=== PATIENT | male | born 1965 | race Caucasian/White ===

== ENCOUNTER 2020-08-21 22:34 | Emergency (ER) | payer OTHER ==
[~2020-08-21] VITALS: Ht 180.3 cm; Wt 127.0 kg
[2020-08-21 23:48] LABS: BASOPHILS % 0.8 % (0.0-2.0); EOSINOPHILS % 1.4 % (0.0-5.0); HEMATOCRIT. 40.8 % (42.0-52.0); HEMOGLOBIN. 13.6 g/dL (14.0-18.0); LYMPHOCYTES % 9.3 % (20.0-50.0); MEAN CORPUSCULAR HEMOGLOBIN 28.2 pg (28.0-32.0); MEAN CORPUSCULAR VOLUME 84.7 fL (80.0-94.0); MEAN PLATELET VOLUME 9.8 fl (7.4-10.4); MONOCYTES % 7.2 % (2.0-8.0); NEUTROPHILS % 81.3 % (40.0-76.0); PLATELET 226 x1000/uL (130-400); RED BLOOD CELL COUNT 4.82 mill/uL (4.7-6.1); RED CELL DISTRIBUTION WIDTH 14.7 % (11.6-14.6)
[2020-08-21 23:59] LABS: CHLORIDE 103 mEq/L (98-107)
[2020-08-22 03:04] VITALS: BP 138/90
[2020-08-23] MEDS ORDERED: TERA10CA4 PO (23:04)
[2020-08-23] MEDS ORDERED: SPIR25TA PO (23:04)
[2020-08-23] MEDS ORDERED: COR3 PO (23:04)
[2020-08-23] MEDS ORDERED: INSU100V3 SUBCUT (23:04)
[2020-08-23] MEDS ORDERED: METF-873 PO (23:04)
[2020-08-23] MEDS ORDERED: LISI-649 PO (23:04)
[2020-08-23] MEDS ORDERED: ZOLP5TAB2 PO (23:05)
== END 2020-08-22 03:06 | disposition home or self-care (01) ==
LOC: ER 22:34
DX: R07.89 Other chest pain (principal); R42 Dizziness and giddiness; E11.9 Type 2 diabetes mellitus without complications; E78.00 Pure hypercholesterolemia, unspecified; I10 Essential (primary) hypertension
CPT/HCPCS: 36415; 71045; 80053; 83880; 84484; 85025; 93005; 99285

== ENCOUNTER 2020-08-23 04:31 | Inpatient (IN) | payer OTHER ==
[~2020-08-23] VITALS: Ht 175.3 cm; Wt 125.6 kg
[2020-08-23 06:44] LABS: BASOPHILS % 0.8 % (0.0-2.0); EOSINOPHILS % 2.7 % (0.0-5.0); HEMATOCRIT. 40.4 % (42.0-52.0); HEMOGLOBIN. 13.7 g/dL (14.0-18.0); LYMPHOCYTES % 16.6 % (20.0-50.0); MEAN CORPUSCULAR HEMOGLOBIN 28.8 pg (28.0-32.0); MEAN CORPUSCULAR VOLUME 84.8 fL (80.0-94.0); MEAN PLATELET VOLUME 9.9 fl (7.4-10.4); MONOCYTES % 9.3 % (2.0-8.0); NEUTROPHILS % 70.6 % (40.0-76.0); PLATELET 219 x1000/uL (130-400); RED BLOOD CELL COUNT 4.77 mill/uL (4.7-6.1); RED CELL DISTRIBUTION WIDTH 14.7 % (11.6-14.6)
[2020-08-23 06:51] LABS: CHLORIDE 106 mEq/L (98-107)
[2020-08-23] MEDS ORDERED: ASPIRIN 325MG EC TABLET PO ONE (07:30)
[2020-08-23] MEDS: MORPHINE SULFATE 2 MG/ML CPJ (NOT FOR IM USE) IV PRN ×2 (08:44→23:56)
[2020-08-23] MEDS ORDERED: NITROGLYCERIN 0.4MG TABLET SL SL PRN (10:30)
[2020-08-23] MEDS ORDERED: CLONIDINE 0.1MG TABLET PO PRN (10:30)
[2020-08-23] MEDS ORDERED: DOCUSATE SODIUM 100MG CAPSULE PO PRN (10:30)
[2020-08-23] MEDS ORDERED: NA PHOS,M-B/NA PHOS,DI-BA ENEMA 118ML PR PRN (10:30)
[2020-08-23] MEDS ORDERED: ACETAMINOPHEN 325MG TABLET PO PRN (10:30)
[2020-08-23] MEDS ORDERED: GUAIFENESIN 200MG/10ML SUGAR FREE UDC PO PRN (10:30)
[2020-08-23] MEDS ORDERED: ACETAMINOPHEN 650MG SUPP PR PRN (10:30)
[2020-08-23] MEDS ORDERED: MAGNESIUM/ALUMINUM HYDROXIDE/SIMETHICONE 30ML UDC PO PRN (10:30)
[2020-08-23] MEDS ORDERED: DIPHENHYDRAMINE 50MG/ML VIAL IV PRN (10:30)
[2020-08-23] MEDS ORDERED: IPRATROPIUM/ALBUTEROL 0.5-3(2.5)MG/3ML NEB NEB PRN (10:30)
[2020-08-23] MEDS ORDERED: DEXTROSE 50% WATER 50ML SYRINGE IV PRN (10:30)
[2020-08-23] MEDS ORDERED: ONDANSETRON HCL 4MG/2ML INJ IV PRN (10:30)
[2020-08-23] MEDS ORDERED: ENOXAPARIN 30MG/0.3ML SYR SUBCUT SCH (11:13)
[2020-08-23] MEDS: BLOOD SUGAR DIAGNOSTIC STRIP TEST SCH ×3 (12:11→20:53)
[2020-08-23] MEDS: INSULIN LISPRO 100 UNITS/ML SUBCUT SCH ×3 (12:11→20:50)
[2020-08-23 12:25] LABS: D-DIMER 0.42 mg/L FEU (<0.50); PROTHROMBIN TIME 10.8 sec (9.6-11.0)
[2020-08-23] MEDS ORDERED: POTASSIUM CHLORIDE 20MEQ/PACKET PO NR (13:45)
[2020-08-23 15:10] LABS: CREATINE KINASE 79 IU/L (39-308)
[2020-08-23 15:11] LABS: CREATINE KINASE MB FRACTION 1.2 ng/mL (0.5-3.6)
[2020-08-23] MEDS: CARVEDILOL 12.5MG TABLET PO SCH (20:49)
[2020-08-23] MEDS: FAMOTIDINE 20MG TABLET PO SCH (20:50)
[2020-08-23 21:30] VITALS: BP 117/97
[2020-08-23] MEDS ORDERED: LISI-649 PO (23:04)
[2020-08-23] MEDS ORDERED: COR3 PO (23:04)
[2020-08-23] MEDS ORDERED: METF-873 PO (23:04)
[2020-08-23] MEDS ORDERED: INSU100V3 SUBCUT (23:04)
[2020-08-23] MEDS ORDERED: TERA10CA4 PO (23:04)
[2020-08-23] MEDS ORDERED: SPIR25TA PO (23:04)
[2020-08-23] MEDS ORDERED: ZOLP5TAB2 PO (23:05)
[2020-08-23] MEDS: DEXT 5%/0.45% NACL 1000ML 1,000 ML IV SCH (23:36)
[2020-08-24] VITALS (8 sets, daily range): BP systolic 113–138; BP diastolic 56–88
[2020-08-24] MEDS ORDERED: ENOXAPARIN 40MG/0.4ML SYR SUBCUT NR (00:05)
[2020-08-24 00:40] LABS: CREATINE KINASE 87 IU/L (39-308)
[2020-08-24 00:41] LABS: CREATINE KINASE MB FRACTION 1.3 ng/mL (0.5-3.6)
[2020-08-24 01:47] LABS: CLARITY URINE CLEAR (CLEAR); COLOR URINE YELLOW (YELLOW); KETONES URINE NEGATIVE (NEGATIVE); LEUKOCYTE ESTERASE URINE NEGATIVE (NEGATIVE); NITRITE URINE NEGATIVE (NEGATIVE); OCCULT BLOOD URINE NEGATIVE (NEGATIVE); PROTEIN URINE NEGATIVE (NEGATIVE); SPECIFIC GRAVITY URINE 1.016 (1.005-1.030); UROBILINOGEN URINE 0.2 E.U./dL (0.2-1.0)
[2020-08-24 01:57] LABS: *AMPHETAMINES SCREEN URINE NEGATIVE (NEGATIVE)
[2020-08-24 01:58] LABS: *BARBITURATES SCREEN URINE NEGATIVE (NEGATIVE); *BENZODIAZEPINES SCREEN URINE NEGATIVE (NEGATIVE); *COCAINE SCREEN URINE NEGATIVE (NEGATIVE); METHADONE URINE SCREEN NEGATIVE (NEGATIVE); OPIATES URINE SCREEN PRESUMTIVE POSITIVE (NEGATIVE); PHENCYCLIDINE URINE SCREEN NEGATIVE (NEGATIVE)
[2020-08-24 01:59] LABS: CANNABINOID URINE SCREEN PRESUMTIVE POSITIVE (NEGATIVE)
[2020-08-24] MEDS: INSULIN LISPRO 100 UNITS/ML SUBCUT SCH ×3 (05:47→17:15)
[2020-08-24] MEDS: BLOOD SUGAR DIAGNOSTIC STRIP TEST SCH ×3 (05:47→16:45)
[2020-08-24 06:30] LABS: BASOPHILS % 1.1 % (0.0-2.0); EOSINOPHILS % 3.1 % (0.0-5.0); HEMATOCRIT. 41.5 % (42.0-52.0); LYMPHOCYTES % 19.7 % (20.0-50.0); MEAN CORPUSCULAR VOLUME 86.1 fL (80.0-94.0); MEAN PLATELET VOLUME 10.5 fl (7.4-10.4); MONOCYTES % 10.4 % (2.0-8.0); NEUTROPHILS % 65.7 % (40.0-76.0); PLATELET 237 x1000/uL (130-400); RED BLOOD CELL COUNT 4.83 mill/uL (4.7-6.1); RED CELL DISTRIBUTION WIDTH 14.3 % (11.6-14.6)
[2020-08-24] MEDS ORDERED: SODIUM CHLORIDE 0.45% 1,000 ML IV SCH (06:30)
[2020-08-24 06:34] LABS: CHLORIDE 105 mEq/L (98-107)
[2020-08-24 06:41] LABS: LDL CHOLESTEROL 77 mg/dL (5-100)
[2020-08-24 06:42] LABS: HDL CHOLESTEROL 32 mg/dL (40-59)
[2020-08-24 06:47] LABS: TOTAL IRON BINDING CAPACITY 369 ug/dL (250-450)
[2020-08-24 06:50] LABS: T4 FREE 1.24 ng/dL (0.76-1.46)
[2020-08-24 07:06] LABS: VITAMIN B12 SERUM 554 pg/mL (211-911)
[2020-08-24] MEDS ORDERED: FENTANYL CITRATE/PF 50MCG/ML 2ML VIAL ONE ×2 (08:05→11:39)
[2020-08-24] MEDS ORDERED: MIDAZOLAM HCL 5 MG/5 ML VIAL ONE (08:05)
[2020-08-24] MEDS ORDERED: ASPIRIN/SOD BICARB/CITRIC ACID 324MG TAB EFF ONE (08:05)
[2020-08-24] MEDS ORDERED: IOHEXOL-300 100 ML BOTTLE ONE (08:06)
[2020-08-24] MEDS ORDERED: IODIXANOL 320MG/ML 100 ML BOTTLE IV ONE (08:06)
[2020-08-24] MEDS ORDERED: LIDOCAINE HCL 1% 20ML VIAL (Pyxis) INJ ONE (08:06)
[2020-08-24] MEDS: ASPIRIN 81MG EC TABLET PO SCH (08:59)
[2020-08-24] MEDS: CARVEDILOL 12.5MG TABLET PO SCH (08:59)
[2020-08-24] MEDS ORDERED: ACETAMINOPHEN 325MG TABLET PO PRN (11:15)
[2020-08-24] MEDS ORDERED: SODIUM CHLORIDE 0.45% 1,000 ML IV ONE (11:15)
[2020-08-24] MEDS ORDERED: MORPHINE SULFATE 2 MG/ML CPJ (NOT FOR IM USE) IV PRN (11:15)
[2020-08-24] MEDS ORDERED: ATROPINE SULFATE 1MG/10ML SYR IV PRN (11:15)
[2020-08-24] MEDS ORDERED: MIDAZOLAM HCL 2 MG/2 ML VIAL ONE (11:39)
[2020-08-24] MEDS ORDERED: ALBU90AE INH (13:57)
[2020-08-24] MEDS ORDERED: AMLO5TAB4 MT (13:57)
[2020-08-24] MEDS ORDERED: PRAV40TA58 MT (13:57)
[2020-08-24] MEDS ORDERED: METO25TA6 MT (13:57)
[2020-08-24] MEDS ORDERED: ASPI-1497 MT (13:57)
[2020-08-24] MEDS: DEXT 5%/0.45% NACL 1000ML 1,000 ML IV SCH (16:40)
[2020-08-24] MEDS: FAMOTIDINE 20MG TABLET PO SCH (21:05)
[2020-08-24] MEDS: METOPROLOL TARTRATE 25MG TABLET PO SCH (21:05)
[2020-08-24] MEDS: AMLODIPINE 2.5MG TABLET PO SCH (21:05)
[2020-08-25] VITALS: BP 114/80
[2020-08-25 04:00] VITALS: BP 119/81
[2020-08-25] MEDS: BLOOD SUGAR DIAGNOSTIC STRIP TEST SCH (06:45)
[2020-08-25] MEDS: INSULIN LISPRO 100 UNITS/ML SUBCUT SCH (07:15)
[2020-08-25 08:00] VITALS: BP 157/101
[2020-08-25] MEDS: METOPROLOL TARTRATE 25MG TABLET PO SCH (08:45)
[2020-08-25] MEDS: ASPIRIN 81MG EC TABLET PO SCH (08:46)
[2020-08-25] MEDS: AMLODIPINE 2.5MG TABLET PO SCH (08:46)
[2020-08-25] MEDS: DEXT 5%/0.45% NACL 1000ML 1,000 ML IV SCH (08:47)
[2020-08-25 08:54] LABS: BASOPHILS % 0.2 % (0.0-2.0); EOSINOPHILS % 3.8 % (0.0-5.0); HEMATOCRIT. 40.2 % (42.0-52.0); HEMOGLOBIN. 13.3 g/dL (14.0-18.0); LYMPHOCYTES % 19.5 % (20.0-50.0); MEAN CORPUSCULAR HEMOGLOBIN 28.6 pg (28.0-32.0); MEAN CORPUSCULAR VOLUME 86.2 fL (80.0-94.0); MEAN PLATELET VOLUME 10.4 fl (7.4-10.4); MONOCYTES % 11.4 % (2.0-8.0); NEUTROPHILS % 65.1 % (40.0-76.0); PLATELET 228 x1000/uL (130-400); RED BLOOD CELL COUNT 4.67 mill/uL (4.7-6.1); RED CELL DISTRIBUTION WIDTH 14.8 % (11.6-14.6)
[2020-08-25 09:13] LABS: CHLORIDE 107 mEq/L (98-107)
[2020-08-25 12:00] VITALS: BP 127/88
[2020-08-25 13:09] VITALS: BP 157/91
== END 2020-08-25 13:40 | disposition home or self-care (01) | DRG 287 ==
LOC: ER 04:31 → MICUSO 07:42 → SUPCPDRO 11:34 → 5WST 20:00
PROVIDERS: ADMIT Internal Medicine; ATTEND Internal Medicine
PROC: 4A023N7 Measurement of Cardiac Sampling and Pressure, Left Heart, Percutaneous Approach (ICD-10-PCS; principal; 2020-08-24)
PROC: B2111ZZ Fluoroscopy of Multiple Coronary Arteries using Low Osmolar Contrast (ICD-10-PCS; 2020-08-24)
PROC: B2151ZZ Fluoroscopy of Left Heart using Low Osmolar Contrast (ICD-10-PCS; 2020-08-24)
DX: I25.111 Atherosclerotic heart disease of native coronary artery with angina pectoris with documented spasm (principal); J98.11 Atelectasis; Z68.41 Body mass index [BMI] 40.0-44.9, adult; I10 Essential (primary) hypertension; E78.5 Hyperlipidemia, unspecified; E11.65 Type 2 diabetes mellitus with hyperglycemia; Z20.822 Contact with and (suspected) exposure to COVID-19; D64.9 Anemia, unspecified; J43.9 Emphysema, unspecified; E66.9 Obesity, unspecified; E78.00 Pure hypercholesterolemia, unspecified; R74.01 Elevation of levels of liver transaminase levels; N40.0 Benign prostatic hyperplasia without lower urinary tract symptoms; Z87.891 Personal history of nicotine dependence; Z79.4 Long term (current) use of insulin; Z79.899 Other long term (current) drug therapy
CPT/HCPCS: 36415; 71045; 71250; 80048; 80053; 80061; 80305; 81003; 82550; 82553; 82607; 83036; 83540; 83550; 83735; 83880; 84153; 84439; 84443; 84484; 85025; 85044; 85379; 87426; 93005; 93306; 93458; 93970; 99285; C1769; C1893; J1200; J1644; J1650; J2250; J2270; J3010; J3490; Q9967; G0103

== ENCOUNTER 2021-02-23 02:35 | Emergency (ER) | payer OTHER ==
[~2021-02-23] VITALS: Ht 180.3 cm; Wt 119.0 kg
[~2021-02-23 02:35] MED LIST: ALBU90AE INH; AMLO5TAB4 MT; ASPI-1497 MT; INSU100V3 SUBCUT; METF-873 PO; METO25TA6 MT; PRAV40TA58 MT; ZOLP5TAB2 PO
[2021-02-23 02:38] VITALS: BP 188/91
[2021-02-23] MEDS ORDERED: ONDANSETRON 4MG ODT PO ONE (03:00)
[2021-02-23] MEDS ORDERED: DIPHENHYDRAMINE 25MG CAPSULE PO ONE (03:00)
== END 2021-02-23 03:05 | disposition home or self-care (01) ==
LOC: ER 02:35
DX: U07.1 COVID-19 (principal); E11.9 Type 2 diabetes mellitus without complications; E78.00 Pure hypercholesterolemia, unspecified; I10 Essential (primary) hypertension; Z79.899 Other long term (current) drug therapy; Z79.4 Long term (current) use of insulin
CPT/HCPCS: 93005; 99283; Q0162; Q0163